=== PATIENT | female | born 1960 | race Hispanic/Latino ===

== ENCOUNTER 2021-08-30 10:30 | Emergency (ER) | payer BC ==
--- OUTSIDE RECORDS SUMMARY | 2021-08-30 10:34 | XMS REPORT | Clinical Summary ---
:1960 Author Organization [facility] Address [address] [place] [address] Care Team Providers Name Role Phone Unavailable Primary Care Provider Unavailable Allergies No known active allergies Medications Medication Sig Dispensed Refills Start Date End Date Status carvedilol (COREG) 25 Take 25 mg by 0 Active mg tablet mouth twice daily. HYDROcodone-acetaminop Take 1 tablet by 90 tablet 0 11/21/2019 Active hen (NORCO) 5 mg-325 mouth every 4 mg per (four) hours as tabletIndications: needed (pain). Abdominal pain, left lower quadrant Active Problems Problem Noted Date Hypertension 11/20/2019 Diverticulitis of sigmoid colon 11/20/2019 Complex cyst of right ovary 11/20/2019 Right upper quadrant pain 11/20/2019 Surgical History Surgery Date Site/Laterality Comments HERNIA REPAIR PARTIAL HYSTERECTOMY Medical History Medical History Date Comments Hypertension Social History Tobacco Use Types Packs/Day Years Used Date Never Smoker Smokeless Tobacco: Never Used Alcohol Use Standard Drinks/Week Comments Yes 0 (1 standard drink = 0.6 oz pure alcoho l) Sex Assigned at Date Recorded Not on file Obstetrics History Last Filed Vital Signs Not on file Plan of Treatment Health Maintenance Due Date Last Done Comments COVID-19 Vaccination (1) 1966 Results Not on fileafter 08/30/2020 Advance Directives Code Status Date Activated Date Inactivated Comments Full Code 11/20/2019 6:14 AM 11/22/2019 1:07 PM
--- OUTSIDE RECORDS SUMMARY | 2021-08-30 10:37 | XMS REPORT | Continuity of Care Document ---
:1960 Author Organization [facility] t Address [address] [place] [address] Care Team Providers Name Role Phone Fred Joseph MD Primary Care Physician [phone] Angelic JORGENSEN, T Attending Clinician Unavailable Only, Db Test Attending Clinician Unavailable Heath MENDEZ Attending Clinician HEATH Attending Clinician Unavailable Flynn MENDEZ, Oni Attending Clinician Sky Gonzalez DO Attending Clinician Michelle MAJOR C Attending Clinician Yordan WILEY Attending Clinician Doctor Unassigned, Name Attending Clinician Unavailable Roxi Contreras DO Attending Clinician Luis HURTADO Attending Clinician Unavailable Gamaliel Joseph MD Attending Clinician Denises ROSS Attending Clinician Unavailable Tayler MARTINEZ Attending Clinician Unavailable Prosper MENDEZ, Rodriguez Attending Clinician JONA Pisanoitting Clinician Unavailable Payers Payer Name Policy Type Policy Number Effective Date Expiration Date Oni jackson [facility] [id number] 2020 00:00:00 MEDICAID OF [place] [id number] 2020 00:00:00 Problems Condition Condition Condition Status Onset Resolution Last Treating Co mments Source Name Details Category Date Date Treatment Clinician Date Right Right Disease Active upper upper 11-19 Anderso quadrant quadrant 00:00: n pain pain 00 Hypertensi Hypertensi Disease Active M D on on 11-19 Anderso 00:00: n 00 Diverticul Diverticul Disease Active M D itis of itis of 11-19 Anderso sigmoid sigmoid 00:00: n colon colon 00 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 Reports still has ovaries Well woman Well woman Disease Active Overview : Univers exam exam 3-15 ICD10 ity of 00:00: Diagnosis 00 Term Medical [employer]iler [employer] Branch Utility Overweight Overweight Disease Active Overview : Univers 3-15 Formattin ity of 00:00: g of this [place] 00 note Medical might be Branch different from the original. 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 Allergies, Adverse Reactions, Alerts Allergy Allergy Status Severity Reaction(s) Onset Inactive Treating Comm ents Source Name Type Date Date Clinician NO KNOWN Drug Active Univers ALLERGIE Class ity of [facility] [place] [facility] Social History Social Habit Start Date Stop Date Quantity Comments Source Exposure to Not sure University of SARS-CoV-2 [place] Medical (event) Branch Alcohol intake 2019-11-20 2019-11-20 Current drinker MD Yasmin gomez 00:00:00 00:00:00 of alcohol (finding) Tobacco use and 2019-04-13 2019-04-13 Smokeless tobacco MD Hirsch exposure 00:00:00 00:00:00 non-user Sex Ass[birth year] At [birth year] MD [place] on 00:00:00 00:00:00 Smoking Status Start Date Stop Date Source Never smoker [facility] Medications Ordered Filled Start Stop Current Ordering Indication Dosage Frequency Signature Comments Components Source Medication Medication Date Date Medication? Clinician (SIG) Name Name benzonatate Yes [id number] 200mg Take 1 Univers 200 mg 5-17 capsule by ity of capsule 00:00: mouth 3 (three) Medical times Branch daily as needed for Cough. naproxen Yes [id number] 550mg Take 1 Un hemalatha sodium 550 5-17 tablet by ity of mg tablet 00:00: mouth 2 (two) Medical times Branch daily as needed for Pain (scale 7-10). benzonatate Yes [id number] 200mg Take 1 Univers 200 mg 5-17 capsule by ity of capsule 00:00: mouth 3 (three) Medical times Branch daily as needed for Cough. naproxen Yes [id number] 550mg Take 1 Un hemalatha sodium 550 5-17 tablet by ity of mg tablet 00:00: mouth 2 00 (two) Medical times Branch daily as needed for Pain (scale 7-10). benzonatate Yes [id number] 200mg Take 1 Univers 200 mg 5-17 capsule by ity of capsule 00:00: mouth 3 (three) Medical times Branch daily as needed for Cough. naproxen 2020- Yes [id number] 550mg Take 1 Un hemalatha sodium 550 5-17 tablet by ity of mg tablet 00:00: mouth 2 00 (two) Medical times Branch daily as needed for Pain (scale 7-10). aspirin 0 Yes 324mg 324 mg, Univer s chewable 2-03 Oral, ity of tablet 324 15:00: DAILY, [place] mg 00 First dose Medical on Wed Branch 07/10/20 at 0900, Until Discontinu ed, KAMILLE FENTanyl PF 2020-0 2020- No 50ug 50 mcg, Un hemalatha (SUBLIMAZE 2-02 -02 Slow IV ity o f (PF)) 18:10: 18:20 Push, [place] injection 00 :00 ONCE, 1 Medical 50 mcg dose, Tue Branch 07/09/20 at 1215, [place]AM[place]LE azithromyci 2020-0 Yes [id number] 250mg Take 1 Univers n 250 mg 2-02 tablet by ity of tablet 00:00: mouth 00 daily. Medical Take 500 Branch mg day 1, then 250 mg days 2 to 5. benzonatate 2020-0 Yes [id number] 100mg Take 1 Univers 100 mg 2-02 capsule by ity of capsule 00:00: mouth (three) Medical times Branch daily as needed for Cough. albuterol 2020-0 Yes [id number] 2{puff} Inhale 2 Univers 90 2-02 Puffs ity of mcg/actuati 00:00: every 4 Reza as on inhaler 00 (four) Medical hours as Branch needed for Wheezing or Shortness of Breath. azithromyci 2020-0 Yes [id number] 250mg Take 1 Univers n 250 mg 2-02 tablet by ity of tablet 00:00: mouth 00 daily. Medical Take 500 Branch mg day 1, then 250 mg days 2 to 5. benzonatate 2020-0 Yes [id number] 100mg Take 1 Univers 100 mg 2-02 capsule by ity of capsule 00:00: mouth (three) Medical times Branch daily as needed for Cough. albuterol 2020-0 Yes [id number] 2{puff} Inhale 2 Univers 90 2-02 Puffs ity of mcg/actuati 00:00: every 4 Reza as on inhaler 00 (four) Medical hours as Branch needed for Wheezing or Shortness of Breath. azithromyci 2020-0 Yes [id number] 250mg Take 1 Univers n 250 mg 2-02 tablet by ity of tablet 00:00: mouth 00 daily. Medical Take 500 Branch mg day 1, then 250 mg days 2 to 5. benzonatate 2020-0 Yes [id number] 100mg Take 1 Univers 100 mg 2-02 capsule by ity of capsule 00:00: mouth (three) Medical times Branch daily as needed for Cough. albuterol 2020-0 Yes [id number] 2{puff} Inhale 2 Univers 90 2-02 Puffs ity of mcg/actuati 00:00: every 4 Reza as on inhaler 00 (four) Medical hours as Branch needed for Wheezing or Shortness of Breath. azithromyci 2020-0 Yes [id number] 250mg Take 1 Univers n 250 mg 2-02 tablet by ity of tablet 00:00: mouth [place] 00 daily. Medical Take 500 Branch mg day 1, then 250 mg days 2 to 5. benzonatate 2020-0 Yes [id number] 100mg Take 1 Univers 100 mg 2-02 capsule by ity of capsule 00:00: mouth 3 (three) Medical times Branch daily as needed for Cough. albuterol 2020-0 Yes [id number] 2{puff} Inhale 2 Univers 90 2-02 Puffs ity of mcg/actuati 00:00: every 4 Reza as on inhaler 00 (four) Medical hours as Branch needed for Wheezing or Shortness of Breath. azithromyci 2020-0 Yes [id number] 250mg Take 1 Univers n 250 mg 2-02 tablet by ity of tablet 00:00: mouth 00 daily. Medical Take 500 Branch mg day 1, then 250 mg days 2 to 5. benzonatate 2020-0 Yes [id number] 100mg Take 1 Univers 100 mg 2-02 capsule by ity of capsule 00:00: mouth 3 (three) Medical times Branch daily as needed for Cough. albuterol 2020-0 Yes [id number] 2{puff} Inhale 2 Univers 90 2-02 Puffs ity of mcg/actuati 00:00: every 4 Reza as on inhaler 00 (four) Medical hours as Branch needed for Wheezing or Shortness of Breath. azithromyci 2020-0 Yes [id number] 250mg Take 1 Univers n 250 mg 2-02 tablet by ity of tablet 00:00: mouth [place] 00 daily. Medical Take 500 Branch mg day 1, then 250 mg days 2 to 5. benzonatate 2020-0 Yes [id number] 100mg Take 1 Univers 100 mg 2-02 capsule by ity of capsule 00:00: mouth 3 (three) Medical times Branch daily as needed for Cough. albuterol 2021-0 Yes [id number] 2{puff} Inhale 2 Univers 90 2-02 Puffs ity of mcg/actuati 00:00: every 4 Reza as on inhaler 00 (four) Medical hours as Branch needed for Wheezing or Shortness of Breath. acetaminoph 0 2020- No 1000mg 1,000 mg, Univers en 1-23 -23 Oral, ity of (TYLENOL) 02:00: 00:58 ONCE, 1 [place] :[place] dose, Fri Medical 1,000 mg 06/28/20 at [facility] h 1999, Routine carvedilol Yes 6.25mg Take 6.25 Univers 6.25 mg 1-23 mg by ity of tablet 00:47: mouth [address] [place] [address] (two) Medical times Branch daily with meals. carvedilol Yes 6.25mg Take 6.25 Univers 6.25 mg 1-23 mg by ity of tablet 00:47: mouth [address] [place] [address] (two) Medical times Branch daily with meals. carvedilol 0 Yes 6.25mg Take 6.25 Univers 6.25 mg 1-23 mg by ity of tablet 00:47: mouth [address] [place] [address] (two) Medical times Branch daily with meals. carvedilol 2020-0 Yes 6.25mg Take 6.25 Univers 6.25 mg 1-23 mg by ity of tablet 00:47: mouth [address] [place] [address] (two) Medical times Branch daily with meals. carvedilol 2020-0 Yes 6.25mg Take 6.25 Univers 6.25 mg 1-23 mg by ity of tablet 00:47: mouth [address] [place] [address] (two) Medical times Branch daily with meals. carvedilol 0 Yes 6.25mg Take 6.25 Univers 6.25 mg 1-23 mg by ity of tablet 00:47: mouth [address] [place] [address] (two) Medical times Branch daily with meals. carvedilol 2020-0 Yes 6.25mg Take 6.25 Univers 6.25 mg 1-22 mg by ity of tablet 18:47: mouth 2 [place] [address] (two) Medical times Branch daily with meals. carvedilol 2020-0 Yes 6.25mg Take 6.25 Univers 6.25 mg 1-22 mg by ity of tablet 18:47: mouth 2 [place] 45 (two) Medical times Branch daily with meals. carvedilol 2020-0 Yes 25mg Take 25 mg M D (COREG) 25 6-17 by mouth Adam so mg tablet 11:02: twice n 08 daily. HYDROcodone 2020-0 Yes Abdominal 1{tbl} Take 1 MD -acetaminop 6-16 pain, left tablet by Anderica gómez (NORCO) 00:00: lower mouth n 5 mg-325 mg 00 quadrant every 4 per tablet (four) hours as needed (pain). ampicillin 2020-0 2020- No [id number] 500mg Take 1 Univers 500 mg 06-27 capsule by ity of capsule 00:00: 05:59 mouth 4 [place] 00 :00 (four) Medical times Branch daily for 10 days. ampicillin 2020-0 2020- No [id number] 500mg Take 1 Univers 500 mg 06-27 capsule by ity of capsule 00:00: 05:59 mouth 4 [place] 00 :00 (four) Medical times Branch daily for 10 days. ampicillin 2020-0 2020- No [id number] 500mg Take 1 Univers 500 mg 06-27 capsule by ity of capsule 00:00: 05:59 mouth 4 [place] 00 :00 (four) Medical times Branch daily for 10 days. ampicillin 2020-0 2020- No [id number] 500mg Take 1 Univers 500 mg 06-27 capsule by ity of capsule 00:00: 05:59 mouth 4 [place] 00 :00 (four) Medical times Branch daily for 10 days. ampicillin 2020-0 2020- No [id number] 500mg Take 1 Univers 500 mg 06-27 capsule by ity of capsule 00:00: 05:59 mouth 4 [place] 00 :00 (four) Medical times Branch daily for 10 days. carvedilol 2020-0 Yes 6.25mg Take 6.25 Univers 6.25 mg 1-16 mg by ity of tablet 16:22: mouth. [address] Branch carvedilol 2020-0 Yes 6.25mg Take 6.25 Univers 6.25 mg 1-16 mg by ity of tablet 16:22: mouth. [address] Branch carvedilol 2020-0 Yes 6.25mg Take 6.25 Univers 6.25 mg 1-16 mg by ity of tablet 16:22: mouth. [address] carvedilol 2020-0 Yes 6.25mg Take 6.25 Univers 6.25 mg 1-16 mg by ity of tablet 16:22: mouth. [place] [address] Medical Branch carvedilol 2020-0 Yes 6.25mg Take 6.25 Univers 6.25 mg 1-16 mg by ity of tablet 16:22: mouth. [address] carvedilol 2020-0 Yes 6.25mg Take 6.25 Univers 6.25 mg 1-16 mg by ity of tablet 16:22: mouth. [address] Branch carvedilol 2020-0 Yes 6.25mg Take 6.25 Univers 6.25 mg 1-16 mg by ity of tablet 16:22: mouth. [address] carvedilol 2020-0 Yes 6.25mg Take 6.25 Univers 6.25 mg 1-16 mg by ity of tablet 16:22: mouth. [address] carvedilol 2020-0 Yes 6.25mg Take 6.25 Univers 6.25 mg 1-16 mg by ity of tablet 16:22: mouth. [address] carvedilol 2020-0 Yes 6.25mg Take 6.25 Univers 6.25 mg 1-16 mg by ity of tablet 16:22: mouth. [address] carvedilol 2020-0 Yes 6.25mg Take 6.25 Univers 6.25 mg 1-16 mg by ity of tablet 16:22: mouth. [address] carvedilol 2020-0 Yes 6.25mg Take 6.25 Univers 6.25 mg 1-16 mg by ity of tablet 16:22: mouth. [address] carvedilol 2020-0 Yes 6.25mg Take 6.25 Univers 6.25 mg 1-16 mg by ity of tablet 16:22: mouth. [address] carvedilol 2020-0 Yes 6.25mg Take 6.25 Univers 6.25 mg 1-16 mg by ity of tablet 16:22: mouth. [address] carvedilol 2020-0 Yes 6.25mg Take 6.25 Univers 6.25 mg 1-16 mg by ity of tablet 16:22: mouth. [address] carvedilol 2020-0 Yes 6.25mg Take 6.25 Univers 6.25 mg 1-16 mg by ity of tablet 16:22: mouth. [place] [address] Medical Branch carvedilol 2020-0 Yes 6.25mg Take 6.25 Univers 6.25 mg 1-16 mg by ity of tablet 16:22: mouth. [place] [address] Medical Branch diclofenac 2019-0 Yes [id number] 50mg Take 1 U nivers 50 mg EC 9-30 tablet by ity of tablet 00:00: mouth (three) Medical times Branch daily as needed for Pain. diclofenac 2018-0 Yes [id number] 50mg Take 1 U nivers 50 mg EC 9-30 tablet by ity of tablet 00:00: mouth (three) Medical times Branch daily as needed for Pain. diclofenac 2018-0 Yes [id number] 50mg Take 1 U nivers 50 mg EC 9-30 tablet by ity of tablet 00:00: mouth (three) Medical times Branch daily as needed for Pain. diclofenac 0 Yes [id number] 50mg Take 1 U nivers 50 mg EC 9-30 tablet by ity of tablet 00:00: mouth (three) Medical times Branch daily as needed for Pain. diclofenac 0 Yes [id number] 50mg Take 1 U nivers 50 mg EC 9-30 tablet by ity of tablet 00:00: mouth (three) Medical times Branch daily as needed for Pain. diclofenac 2018-0 Yes [id number] 50mg Take 1 U nivers 50 mg EC 9-30 tablet by ity of tablet 00:00: mouth (three) Medical times Branch daily as needed for Pain. diclofenac 2018-0 Yes [id number] 50mg Take 1 U nivers 50 mg EC 9-30 tablet by ity of tablet 00:00: mouth (three) Medical times Branch daily as needed for Pain. diclofenac 2018-0 Yes [id number] 50mg Take 1 U nivers 50 mg EC 9-30 tablet by ity of tablet 00:00: mouth (three) Medical times Branch daily as needed for Pain. diclofenac 2018-0 Yes [id number] 50mg Take 1 U nivers 50 mg EC 9-30 tablet by ity of tablet 00:00: mouth (three) Medical times Branch daily as needed for Pain. diclofenac 2019-0 Yes [id number] 50mg Take 1 U nivers 50 mg EC 9-30 tablet by ity of tablet 00:00: mouth (three) Medical times Branch daily as needed for Pain. diclofenac Yes [id number] 50mg Take 1 U nivers 50 mg EC 9-30 tablet by ity of tablet 00:00: mouth (three) Medical times Branch daily as needed for Pain. diclofenac Yes [id number] 50mg Take 1 U nivers 50 mg EC 9-30 tablet by ity of tablet 00:00: mouth (three) Medical times Branch daily as needed for Pain. diclofenac Yes [id number] 50mg Take 1 U nivers 50 mg EC 9-30 tablet by ity of tablet 00:00: mouth (three) Medical times Branch daily as needed for Pain. diclofenac Yes [id number] 50mg Take 1 U nivers 50 mg EC 9-30 tablet by ity of tablet 00:00: mouth (three) Medical times Branch daily as needed for Pain. diclofenac Yes [id number] 50mg Take 1 U nivers 50 mg EC 9-30 tablet by ity of tablet 00:00: mouth (three) Medical times Branch daily as needed for Pain. diclofenac Yes [id number] 50mg Take 1 U nivers 50 mg EC 9-30 tablet by ity of tablet 00:00: mouth (three) Medical times Branch daily as needed for Pain. diclofenac Yes [id number] 50mg Take 1 U nivers 50 mg EC 9-30 tablet by ity of tablet 00:00: mouth (three) Medical times Branch daily as needed for Pain. diclofenac Yes [id number] 50mg Take 1 U nivers 50 mg EC 9-30 tablet by ity of tablet 00:00: mouth (three) Medical times Branch daily as needed for Pain. diclofenac 2020- No [id number] 50mg Take 1 Univers 50 mg EC 9-30 - tablet by ity o f tablet 00:00: 00:00 mouth 3 00 :00 (three) Medical times Branch daily as needed for Pain. gabapentin 2018- Yes 100mg Take 1 Univ ers 100 mg 8- capsule by ity of capsule 00:00: mouth 3 (three) Medical times Branch daily. gabapentin 2019-0 Yes 100mg Take 1 Univ ers 100 mg 8-01 capsule by ity of capsule 00:00: mouth (three) Medical times Branch daily. gabapentin 2019-0 Yes 100mg Take 1 Univ ers 100 mg 8-01 capsule by ity of capsule 00:00: mouth 3 (three) Medical times Branch daily. gabapentin 2019-0 Yes 100mg Take 1 Univ ers 100 mg 8-01 capsule by ity of capsule 00:00: mouth (three) Medical times Branch daily. gabapentin 2019-0 Yes 100mg Take 1 Univ ers 100 mg 8-01 capsule by ity of capsule 00:00: mouth (three) Medical times Branch daily. gabapentin 2019-0 Yes 100mg Take 1 Univ ers 100 mg 8-01 capsule by ity of capsule 00:00: mouth (three) Medical times Branch daily. gabapentin 2019-0 Yes 100mg Take 1 Univ ers 100 mg 8-01 capsule by ity of capsule 00:00: mouth (three) Medical times Branch daily. gabapentin 2019-0 Yes 100mg Take 1 Univ ers 100 mg 8-01 capsule by ity of capsule 00:00: mouth (three) Medical times Branch daily. gabapentin 2019-0 Yes 100mg Take 1 Univ ers 100 mg 8-01 capsule by ity of capsule 00:00: mouth (three) Medical times Branch daily. gabapentin 2019-0 Yes 100mg Take 1 Univ ers 100 mg 8-01 capsule by ity of capsule 00:00: mouth (three) Medical times Branch daily. gabapentin 2019-0 Yes 100mg Take 1 Univ ers 100 mg 8-01 capsule by ity of capsule 00:00: mouth (three) Medical times Branch daily. gabapentin 2019-0 Yes 100mg Take 1 Univ ers 100 mg 8-01 capsule by ity of capsule 00:00: mouth (three) Medical times Branch daily. gabapentin 2019-0 Yes 100mg Take 1 Univ ers 100 mg 8-01 capsule by ity of capsule 00:00: mouth 3 (three) Medical times Branch daily. gabapentin 2019-0 Yes 100mg Take 1 Univ ers 100 mg 8-01 capsule by ity of capsule 00:00: mouth (three) Medical times Branch daily. gabapentin 2019-0 Yes 100mg Take 1 Univ ers 100 mg 8-01 capsule by ity of capsule 00:00: mouth 3 [place] 00 (three) Medical times Branch daily. gabapentin 2019-0 Yes 100mg Take 1 Univ ers 100 mg 8-01 capsule by ity of capsule 00:00: mouth 3 [place] 00 (three) Medical times Branch daily. gabapentin 2019-0 Yes 100mg Take 1 Univ ers 100 mg 8-01 capsule by ity of capsule 00:00: mouth 3 [place] 00 (three) Medical times Branch daily. gabapentin 2019-0 Yes 100mg Take 1 Univ ers 100 mg 8-01 capsule by ity of capsule 00:00: mouth 3 [place] 00 (three) Medical times Branch daily. gabapentin 2019-0 Yes 100mg Take 1 Univ ers 100 mg 8-01 capsule by ity of capsule 00:00: mouth 3 [place] 00 (three) Medical times Branch daily. gabapentin 2019-0 Yes 100mg Take 1 Univ ers 100 mg 8-01 capsule by ity of capsule 00:00: mouth 3 [place] 00 (three) Medical times Branch daily. gabapentin 2019-0 Yes 100mg Take 1 Univ ers 100 mg 8-01 capsule by ity of capsule 00:00: mouth 3 [place] 00 (three) Medical times Branch daily. gabapentin 2019-0 2021- No 100mg Take 1 Uni vers 100 mg 8-01 -22 capsule by ity of capsule 00:00: 00:00 mouth 3 [place] 00 :00 (three) Medical times Branch daily. cyclobenzap Yes [id number] 10mg Take 1 Univers rine 10 mg 6-17 4 tablet by ity of tablet 00:00: mouth at [place] [address] bedtime. Medical Branch cyclobenzap 2018-0 Yes [id number] 10mg Take 1 Univers rine 10 mg 6-17 4 tablet by ity of tablet 00:00: mouth at [place] [address] bedtime. Medical Branch cyclobenzap 2019-0 Yes [id number] 10mg Take 1 Univers rine 10 mg 6-17 4 tablet by ity of tablet 00:00: mouth at [place] [address] bedtime. Medical Branch cyclobenzap 2018- Yes [id number] 10mg Take 1 Univers rine 10 mg 6-17 4 tablet by ity of tablet 00:00: mouth at [place] [address] bedtime. Medical Branch cyclobenzap 2018- Yes [id number] 10mg Take 1 Univers rine 10 mg 6-17 4 tablet by ity of tablet 00:00: mouth at [place] [address] bedtime. Medical Branch cyclobenzap 2018-0 Yes [id number] 10mg Take 1 Univers rine 10 mg 6-17 4 tablet by ity of tablet 00:00: mouth at [place] [address] bedtime. Medical Branch cyclobenzap 2018-0 Yes [id number] 10mg Take 1 Univers rine 10 mg 6-17 4 tablet by ity of tablet 00:00: mouth at [place] [address] bedtime. Medical Branch cyclobenzap 2018- Yes [id number] 10mg Take 1 Univers rine 10 mg 6-17 4 tablet by ity of tablet 00:00: mouth at [place] [address] bedtime. Medical Branch cyclobenzap 2018- Yes [id number] 10mg Take 1 Univers rine 10 mg 6-17 4 tablet by ity of tablet 00:00: mouth at [place] [address] bedtime. Medical Branch cyclobenzap 2018- Yes [id number] 10mg Take 1 Univers rine 10 mg 6-17 4 tablet by ity of tablet 00:00: mouth at [place] [address] bedtime. Medical Branch cyclobenzap 2018- Yes [id number] 10mg Take 1 Univers rine 10 mg 6-17 4 tablet by ity of tablet 00:00: mouth at [place] [address] bedtime. Medical Branch cyclobenzap 2018- Yes [id number] 10mg Take 1 Univers rine 10 mg 6-17 4 tablet by ity of tablet 00:00: mouth at [place] [address] bedtime. Medical Branch cyclobenzap 2018-0 Yes [id number] 10mg Take 1 Univers rine 10 mg 6-17 4 tablet by ity of tablet 00:00: mouth at [place] [address] bedtime. Medical Branch cyclobenzap 2018- Yes [id number] 10mg Take 1 Univers rine 10 mg 6-17 4 tablet by ity of tablet 00:00: mouth at [place] [address] bedtime. Medical Branch cyclobenzap 2018-0 Yes [id number] 10mg Take 1 Univers rine 10 mg 6-17 4 tablet by ity of tablet 00:00: mouth at [place] [address] bedtime. Medical Branch cyclobenzap 2018- Yes [id number] 10mg Take 1 Univers rine 10 mg 6-17 4 tablet by ity of tablet 00:00: mouth at [place] 00 bedtime. Medical Branch cyclobenzap Yes [id number] 10mg Take 1 Univers rine 10 mg 6-17 4 tablet by ity of tablet 00:00: mouth at [place] [address] bedtime. Medical Branch cyclobenzap Yes [id number] 10mg Take 1 Univers rine 10 mg 6-17 4 tablet by ity of tablet 00:00: mouth at [place] [address] bedtime. Medical Branch cyclobenzap Yes [id number] 10mg Take 1 Univers rine 10 mg 6-17 4 tablet by ity of tablet 00:00: mouth at [place] 00 bedtime. Medical Branch cyclobenzap Yes [id number] 10mg Take 1 Univers rine 10 mg 6-17 4 tablet by ity of tablet 00:00: mouth at [place] 00 bedtime. Medical Branch cyclobenzap Yes [id number] 10mg Take 1 Univers rine 10 mg 6-17 4 tablet by ity of tablet 00:00: mouth at [place] [address] bedtime. Medical Branch cyclobenzap Yes [id number] 10mg Take 1 Univers rine 10 mg 6-17 4 tablet by ity of tablet 00:00: mouth at [place] [address] bedtime. Medical Branch cyclobenzap 2021- No [id number] 10mg Take 1 Univers rine 10 mg 6-17 01-22 4 tablet by ity of tablet 00:00: 00:00 mouth at [place] 00 :00 bedtime. Medical Branch cyclobenzap Yes [id number] 5mg Take 1 U nivers rine 5 mg 5-25 tablet by ity o f tablet 00:00: mouth 3 [place] (three) Medical times Branch daily as needed for Muscle Spasms. cyclobenzap Yes [id number] 5mg Take 1 U nivers rine 5 mg 5-25 tablet by ity o f tablet 00:00: mouth 3 [place] (three) Medical times Branch daily as needed for Muscle Spasms. cyclobenzap Yes [id number] 5mg Take 1 U nivers rine 5 mg 5-25 tablet by ity o f tablet 00:00: mouth 3 [place] (three) Medical times Branch daily as needed for Muscle Spasms. cyclobenzap 2018- Yes [id number] 5mg Take 1 U nivers rine 5 mg 5-25 tablet by ity o f tablet 00:00: mouth 3 (three) Medical times Branch daily as needed for Muscle Spasms. cyclobenzap 2018-0 Yes [id number] 5mg Take 1 U nivers rine 5 mg 5-25 tablet by ity o f tablet 00:00: mouth 3 (three) Medical times Branch daily as needed for Muscle Spasms. cyclobenzap 2018-0 Yes [id number] 5mg Take 1 U nivers rine 5 mg 5-25 tablet by ity o f tablet 00:00: mouth 3 (three) Medical times Branch daily as needed for Muscle Spasms. cyclobenzap Yes [id number] 5mg Take 1 U nivers rine 5 mg 5-25 tablet by ity o f tablet 00:00: mouth 3 (three) Medical times Branch daily as needed for Muscle Spasms. cyclobenzap 0 Yes [id number] 5mg Take 1 U nivers rine 5 mg 5-25 tablet by ity o f tablet 00:00: mouth (three) Medical times Branch daily as needed for Muscle Spasms. cyclobenzap 2018-0 Yes [id number] 5mg Take 1 U nivers rine 5 mg 5-25 tablet by ity o f tablet 00:00: mouth (three) Medical times Branch daily as needed for Muscle Spasms. cyclobenzap 0 Yes [id number] 5mg Take 1 U nivers rine 5 mg 5-25 tablet by ity o f tablet 00:00: mouth 3 (three) Medical times Branch daily as needed for Muscle Spasms. cyclobenzap 2018-0 Yes [id number] 5mg Take 1 U nivers rine 5 mg 5-25 tablet by ity o f tablet 00:00: mouth (three) Medical times Branch daily as needed for Muscle Spasms. cyclobenzap 2018-0 Yes [id number] 5mg Take 1 U nivers rine 5 mg 5-25 tablet by ity o f tablet 00:00: mouth 3 (three) Medical times Branch daily as needed for Muscle Spasms. cyclobenzap 2018-0 Yes [id number] 5mg Take 1 U nivers rine 5 mg 5-25 tablet by ity o f tablet 00:00: mouth 3 (three) Medical times Branch daily as needed for Muscle Spasms. cyclobenzap Yes [id number] 5mg Take 1 U nivers rine 5 mg 5-25 tablet by ity o f tablet 00:00: mouth 3 00 (three) Medical times Branch daily as needed for Muscle Spasms. cyclobenzap 0 Yes [id number] 5mg Take 1 U nivers rine 5 mg 5-25 tablet by ity o f tablet 00:00: mouth 3 (three) Medical times Branch daily as needed for Muscle Spasms. cyclobenzap Yes [id number] 5mg Take 1 U nivers rine 5 mg 5-25 tablet by ity o f tablet 00:00: mouth 3 (three) Medical times Branch daily as needed for Muscle Spasms. cyclobenzap Yes [id number] 5mg Take 1 U nivers rine 5 mg 5-25 tablet by ity o f tablet 00:00: mouth 3 (three) Medical times Branch daily as needed for Muscle Spasms. cyclobenzap Yes [id number] 5mg Take 1 U nivers rine 5 mg 5-25 tablet by ity o f tablet 00:00: mouth 3 (three) Medical times Branch daily as needed for Muscle Spasms. cyclobenzap Yes [id number] 5mg Take 1 U nivers rine 5 mg 5-25 tablet by ity o f tablet 00:00: mouth 3 00 (three) Medical times Branch daily as needed for Muscle Spasms. cyclobenzap Yes [id number] 5mg Take 1 U nivers rine 5 mg 5-25 tablet by ity o f tablet 00:00: mouth 3 (three) Medical times Branch daily as needed for Muscle Spasms. cyclobenzap Yes [id number] 5mg Take 1 U nivers rine 5 mg 5-25 tablet by ity o f tablet 00:00: mouth 3 00 (three) Medical times Branch daily as needed for Muscle Spasms. cyclobenzap 0 Yes [id number] 5mg Take 1 U nivers rine 5 mg 5-25 tablet by ity o f tablet 00:00: mouth 3 00 (three) Medical times Branch daily as needed for Muscle Spasms. cyclobenzap 2020- No [id number] 5mg Take 1 Univers rine 5 mg 5-25 - tablet by ity of tablet 00:00: 00:00 mouth 3 [place] 00 :00 (three) Medical [facility] daily as needed for Muscle Spasms. carvedilol 2017-06 Yes 6.25mg Take 6.25 Univers 6.25 mg 0-31 mg by ity of tablet 16:35: mouth. [address] carvedilol 2017-06 Yes 6.25mg Take 6.25 Univers 6.25 mg 0-31 mg by ity of tablet 16:35: mouth. [address] carvedilol 2017-06 Yes 6.25mg Take 6.25 Univers 6.25 mg 0-31 mg by ity of tablet 16:35: mouth. [address] carvedilol 2017-06 Yes 6.25mg Take 6.25 Univers 6.25 mg 0-31 mg by ity of tablet 16:35: mouth. [address] carvedilol 2017-06 Yes 6.25mg Take 6.25 Univers 6.25 mg 0-31 mg by ity of tablet 16:35: mouth. [address] Immunizations Ordered Filled Immunization Date Status Comments [facility] e Immunization Name Name [facility] 2014-08-16 Completed University of 00:00:00 [facility] Tdap 2014-08-16 Completed University of 00:00:00 [facility] Tdap 2014-08-16 Completed University of 00:00:00 [facility] Tdap 2014-08-16 Completed University of 00:00:00 [facility] Tdap 2014-08-16 Completed University of 00:00:00 [facility] Tdap 2014-08-16 Completed University of 00:00:00 [facility] Tdap 2014-08-16 Completed University of 00:00:00 [facility] Tdap 2014-08-16 Completed University of 00:00:00 [facility] Tdap 2014-08-16 Completed University of 00:00:00 [facility] Tdap 2014-08-16 Completed University of 00:00:00 [facility] Tdap 2014-08-16 Completed University of 00:00:00 [facility] Tdap 2014-08-16 Completed University of 00:00:00 [facility] Tdap 2014-08-16 Completed University of 00:00:00 [facility] TDAP 2014-08-16 Completed University of 00:00:00 [place] [facility] TDAP 2014-08-16 Completed University of 00:00:00 [place] [facility] TDAP 2014-08-16 Completed University of 00:00:00 [place] [facility] TDAP 2014-08-16 Completed University of 00:00:00 [place] [facility] TDAP 2014-08-16 Completed University of 00:00:00 [place] [facility] TDAP 2014-08-16 Completed University of 00:00:00 [place] [facility] TDAP 2014-08-16 Completed University of 00:00:00 [place] [facility] TDAP 2014-08-16 Completed University of 00:00:00 [place] [facility] TDAP 2014-08-16 Completed University of 00:00:00 [place] [facility] Tdap 2014-08-16 Completed University of 00:00:00 [place] [facility] TDAP 2014-08-16 Completed University of 00:00:00 [place] [facility] TDAP 2014-08-16 Completed University of 00:00:00 [place] [facility] Tdap 2014-08-16 Completed University of 00:00:00 [place] [facility] Tdap 2014-08-16 Completed University of 00:00:00 [place] [facility] Tdap 2014-08-16 Completed University of 00:00:00 [place] [facility] Tdap 2014-08-16 Completed University of 00:00:00 [place] [facility] Tdap 2014-08-16 Completed University of 00:00:00 [facility] Vital Signs Vital Name Observation Time Observation Value Comments Source Systolic blood 2020-10-21 07:00:00 129 mm[Hg] Univer sity of pressure [facility] Diastolic blood 2020-10-21 07:00:00 85 mm[Hg] Unive rsity of pressure [facility] Heart rate 2020-10-21 07:00:00 80 /min [facility] Body temperature 2020-10-21 07:00:00 37.39 [facility] 2020-10-21 07:00:00 19 /min Univ [facility] Oxygen saturation in 2020-10-21 07:00:00 97 /min [facility] Arterial blood by [facility] Pulse oximetry Branch Body height 2020-10-21 04:32:00 157.5 cm [facility] Body weight 2020-10-21 04:32:00 65.772 kg Universi ty [facility] [place] [facility] BMI 2020-10-21 04:32:00 26.52 kg/m2 [facility] [place] [facility] Systolic blood 2020-07-09 20:30:00 122 mm[Hg] Univer sity of pressure [place] [facility] Diastolic blood 2020-07-09 20:30:00 73 mm[Hg] Unive rsity of pressure [place] [facility] Heart rate 2020-07-09 20:30:00 60 /min [facility] [place] [facility] Respiratory rate 2020-07-09 20:30:00 22 /min Univ ersity [facility] [place] [facility] Oxygen saturation in 2020-07-09 20:30:00 95 /min University of Arterial blood by [place] [employer] Pulse oximetry Branch Body temperature 2020-07-09 17:45:00 36.72 Zena Univ ersity [facility] [place] [facility] Body height 2020-07-09 17:45:00 157.5 cm [facility] [place] [facility] Body weight 2020-07-09 17:45:00 63.504 kg [facility] [place] [facility] BMI 2020-07-09 17:45:00 25.61 kg/m2 [facility] [place] [facility] Systolic blood 2020-06-29 02:30:00 123 mm[Hg] Univer sity of pressure [place] [facility] Diastolic blood 2020-06-29 02:30:00 73 mm[Hg] Unive rsity of pressure [place] [facility] Heart rate 2020-06-29 02:30:00 77 /min [facility] [place] [facility] Respiratory rate 2020-06-29 02:30:00 14 /min Univ ersity of [place] [facility] Oxygen saturation in 2020-06-29 02:30:00 95 /min University of Arterial blood by [place] [employer] Pulse oximetry Branch Body temperature 2020-06-29 02:02:14 37.89 Zena Univ ersity [facility] [place] [facility] Body height 2020-06-29 00:45:00 157.5 cm [facility] [place] [facility] Body weight 2020-06-29 00:45:00 63.504 kg [facility] [place] [facility] BMI 2020-06-29 00:45:00 25.61 kg/m2 [facility] [place] [facility] HEIGHT 2019-11-20 00:00:00 160 cm WEIGHT 2019-11-20 00:00:00 74.5 kg Diastolic blood 2019-06-22 17:33:00 85 mm[Hg] Unive rsity of pressure [place] [facility] Heart rate 2019-06-22 17:33:00 65 /min [facility]i [facility] [place] [facility] Body temperature 2019-06-22 17:33:00 36.61 Zena Univ ersity [facility] [place] [facility] Respiratory rate 2019-06-22 17:33:00 16 /min Univ ersity [facility] [place] [facility] Body weight 2019-06-22 17:33:00 73.936 kg [facility] [place] [facility] BMI 2019-06-22 17:33:00 29.81 kg/m2 [facility] [place] [facility] Systolic blood 2019-06-22 17:33:00 138 mm[Hg] Univer sity of pressure [place] [facility] Systolic blood 2019-06-22 16:19:00 138 mm[Hg] Univer sity of pressure [place] [facility] Diastolic blood 2019-06-22 16:19:00 85 mm[Hg] Unive rsity of pressure [place] [facility] Heart rate 2019-06-22 16:19:00 65 /min [facility]i [facility] [place] [facility] Body temperature 2019-06-22 16:19:00 36.61 Zena Univ ersity [facility] [place] [facility] Respiratory rate 2019-06-22 16:19:00 16 /min Univ ersity [facility] [place] [facility] Body height 2019-06-22 16:19:00 157.5 cm [facility] [place] [facility] [place] Body weight 2019-06-22 16:19:00 74.191 kg [facility] [place] [facility] BMI 2019-06-22 16:19:00 29.92 kg/m2 [facility] [place] [facility] Systolic blood 2018-12-20 19:12:00 141 mm[Hg] Univer sity of pressure [place] [facility] Diastolic blood 2018-12-20 19:12:00 87 mm[Hg] Unive rsity of pressure [place] [facility] Heart rate 2018-12-20 19:11:00 71 /min [facility]i [facility] [place] [facility] Body temperature 2018-12-20 19:11:00 36.06 Zena Univ ersity [facility] [place] [facility] Respiratory rate 2018-12-20 19:11:00 14 /min Univ ersity [facility] [place] [facility] Body height 2018-12-20 19:11:00 157.5 cm [facility] Body weight 2018-12-20 19:11:00 74.447 kg [facility] BMI 2018-12-20 19:11:00 30.02 kg/m2 [facility] Procedures Procedure Date / Time Performed Performing Clinician Sourc e XR CHEST 1 VW 2020-10-21 05:01:05 Gwendolyn Pruett [facility] LIPASE 2020-10-21 04:46:00 Gwendolyn Pruett [facility] TROPONIN I 2020-10-21 04:46:00 Gwendolyn Pruett [facility] COMP. METABOLIC PANEL 2020-10-21 04:46:00 Gwendolyn Pruett [facility] ([id number]) [facility] CBC WITH DIFF 2020-10-21 04:46:00 Gwendolyn Pruett [facility] N-TERMINAL PRO-BNP 2020-10-21 04:46:00 Gwendolyn Pruett [facility] NOTICE OF PRIVACY 2020-10-21 04:23:25 Doctor Unassigned, No [facility] PRACTICES Name [facility] CONSENT/REFUSAL FOR 2020-10-21 04:23:07 Doctor Unassigned, No [facility] DIAGNOSIS AND [facility] TREATMENT XR CHEST 1 VW 2020-07-09 19:37:16 Raul Farr [facility] TROPONIN I 2020-07-09 17:52:00 Raul Farr [facility] COMP. METABOLIC PANEL 2020-07-09 17:52:00 Raul Farr [facility] ([id number]) [facility] CBC WITH DIFF 2020-07-09 17:52:00 Yordan [facility] D-DIMER 2020-07-09 17:52:00 Yordan [facility] N-TERMINAL PRO-BNP 2020-07-09 17:52:00 Raul Farr [facility] HB ECG ROUTINE & 2020-07-09 17:47:23 Yordan [facility] RHYTHM STRIP [facility] Branch NOTICE OF PRIVACY 2020-07-09 17:35:56 Doctor Unassigned, No [facility] PRACTICES Name Medical Branch CONSENT/REFUSAL FOR 2020-07-09 17:35:38 Doctor Unassigned, No [facility] Medical Branch TREATMENT XR CHEST 1 VW 2020-06-29 01:57:48 Sobia Contreras [facility] Medical [place] LIPASE 2020-06-29 01:26:00 Sobia Contreras [facility] TROPONIN I 2020-06-29 01:26:00 Sobia Contreras [facility] HEPATIC FUNCTION PANEL 2020-06-29 01:26:00 [id number] Medical Branch (ALB,T.PRO,BILI T,BU/BC,ALT,AST,ALK PHOS) BASIC METABOLIC PANEL 2020-06-29 01:26:00 Sobia Contreras [facility] versity [facility] (NA, K, CL, CO2, Medical Branch GLUCOSE, BUN, CREATININE, CA) CBC WITH DIFF 2020-06-29 01:26:00 Sobia Contreras [facility] URINALYSIS 2020-06-29 00:56:00 Sobia Contreras [facility] COVID-19 (ID NOW RAPID 2020-06-29 00:56:00 Sobia Contreras Un [facility] TESTING) Medical Branch REFERRAL- 2019-12-26 05:01:00 Doctor Unassigned, No [facility] REQUEST/RESPONSE [facility] EXTERNAL PROVIDER 2019-12-15 05:01:00 Doctor Unassigned, No [facility] RECORDS Name [facility] POCT URINALYSIS 2019-06-22 16:55:00 Anisa Martinez [facility] ASSIGNMENT OF BENEFITS 2019-06-22 15:24:43 Doctor Unassigned, No [facility] Medical Branch MR CERVICAL SPINE WO 2019-01-31 19:55:00 Dre Cheng [facility] Branch CONSENT/REFUSAL FOR 2019-01-31 18:46:36 [facility] Name Medical Branch TREATMENT ASSIGNMENT OF BENEFITS 2019-01-31 18:46:19 Doctor Unassigned, No [facility] Plan of Care Planned Activity Planned Date Details Comments Source Future Scheduled Test 1966 00:00:00 COVID-19 Vaccination MD Hirsch (1) [code = COVID-19 Vaccination (1)] Encounters Start End Encounter Admission Attending Care Care Encounter Source Date/Time Date/Time Type Type Clinicians Facility Department ID 2021-04-06 Emergency [facility] [id number] Univers 19:22:16 ity of [facility] 2021-04-05 Emergency [facility] [id number] Univers 21:16:28 ity of [facility] 2021-04-05 Emergency [facility] [id number] Univers 19:01:09 ity [facility] 2021-06-06 2021-06-06 Letter JOSUE Atwood [id number] Univers 00:00:00 00:00:00 (Out) Sari COLE [id number] it y of [facility] [id number] Reza as [phone] [facility] [address] [place] 2021-06-04 2021-06-04 Laboratory Only, Ang Db Test [facility] 1.2.8 40.114 [id number] Univers 14:55:00 15:10:00 Only Bonnie Joe [facility] [id number] ity of [place] [id number] Reza as BRANNON?BLEA [phone] [address] MEDICAL OFFICE BUILDING 2021-06-04 2021-06-04 Outpatient R [facility] [id number] Univers 14:55:00 14:55:00 [id number] ity of [facility] 2021-06-04 2021-06-04 Outpatient R HEATH [facility] [id number] Univers 14:55:00 14:55:00 BONNIE ity [facility] 2020-10-20 2020-10-21 [facility] [id number] Univers 23:27:00 02:48:00 Gwendolyn Bunn [place] [id number] ity [id number] [id number] [place] 324424 [place] 2020-08-27 2020-08-27 Patient Carlos, [facility] 1.2.840.114 [id number] Univers 00:00:00 00:00:00 Outreach Nino JESSICA [id number] i ty of [facility] [id number] [phone] Ri dical [address] [place] 2020-07-15 2020-07-15 Outpatient R [facility] [id number] Univers 13:00:00 13:00:00 [id number] ity of 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 [id number] ity of [facility] [id number] Reza as MATERNAL [id number] Med ical & CHILD [address] [place] [address] 2020-07-09 2020-07-09 Emergency Yordan [facility] 1.2.840.114 [id number] Univers 11:40:00 14:46:00 Raul Wright [id number] i ty of [id number] [facility] [phone] [place] 324424 [place] 2020-07-09 2020-07-09 Orders Doctor JOSUE 1.2.840.114 [id number] Univers 00:00:00 00:00:00 Only Unassigned, KELSEY [id number] ity of [place] [facility] [id number] Reza as [phone] [facility] 009 Branch 2020-06-28 2020-06-28 Emergency Ben [facility] 1.2.840.114 [id number] Univers 18:47:00 21:00:00 Sobia Wright [id number] ity of [id number] [place] [facility] [id number] [address] 2020-02-08 2020-02-08 Outpatient TAMMY HURTADO [facility] [id number] 00:00:00 00:00:00 ROCKY damon 2019-12-28 2019-12-28 Outpatient TAMMY HURTADO [facility] [id number] 00:00:00 00:00:00 ROCKY damon 2019-12-26 2019-12-26 [facility] 1.2.840.114 [id number] Univers 00:00:00 00:00:00 Fred Wright 350.1.13.10 i ty of [facility] [id number] [phone] Ri dical nal 044 [facility] 2019-12-26 2019-12-26 Orders Doctor JOSUE 1.2.840.114 [id number] Univers 00:00:00 00:00:00 Only Unassigned, KELSEY [id number] ity of [place] [facility] 4.2.7.2.686 Reza as [phone] [address] 2019-12-15 2019-12-15 Orders Doctor JOSUE 1.2.840.114 [id number] Univers 00:00:00 00:00:00 Only Unassigned, KELSEY 350.1.13.10 ity of [place] [facility] 4.2.7.2.686 Reza as [id number] [address] 2019-11-20 2019-11-22 Inpatient JACE ROSS [facility] [id number] 02:50:13 11:02:00 [facility] n 2019-09-06 2019-09-06 Outpatient R AKINSIPE, [facility] [id number] Univers 09:30:00 09:30:00 ANISA [id number] jesse o f [facility] 2019-09-06 2019-09-06 Outpatient R AKINSIPE, [facility] [id number] Univers 00:00:00 00:00:00 ANISA molina o f [facility] 2019-08-09 2019-08-09 Telephone [facility] 1.2.840.114 [id number] Univers 00:00:00 00:00:00 Anisa Lester CLAIMS CONFIGURATION ANALYST 350.1.13.10 ity of [place] 4.2.7.2.686 Reza as MATERNAL [phone] Med ical & CHILD [address] [place] [address] 2019-08-04 2019-08-04 [facility]phone [facility] 1.2.840.114 [id number] Univers 00:00:00 00:00:00 Anisa C CLAIMS CONFIGURATION ANALYST 350.1.13.10 ity of [place] 4.2.7.2.686 Reza as MATERNAL [phone] Med ical & CHILD [address] [place] [address] 2019-08-04 2019-08-04 Telephone [facility] 1.2.840.114 [id number] Univers 00:00:00 00:00:00 Anisa C CLAIMS CONFIGURATION ANALYST 350.1.13.10 ity of [place] 4.2.7.2.686 Reza as MATERNAL [phone] Med ical & CHILD [address] [place] [address] 2019-06-27 2019-06-27 Telephone [facility] 1.2.840.114 [id number] Univers 00:00:00 00:00:00 Anisa C CLAIMS CONFIGURATION ANALYST 350.1.13.10 ity of [place] 4.2.7.2.686 Reza as MATERNAL [id number] Med ical & CHILD [address] [place] [address] 2019-06-22 2019-06-22 Office [facility] [id number] Univers 11:26:25 11:45:20 Visit Anisa C CLAIMS CONFIGURATION ANALYST 350.1.13.10 ity of [place] 4.2.7.2.686 Reza as MATERNAL [id number] Med ical & CHILD [address] [place] [address] 2019-06-22 2019-06-22 Outpatient R MICHELLE [facility] [id number] Univers 09:15:00 11:26:42 ANISA ity o f [facility] 2019-06-22 2019-06-22 Office [facility] 1.2.156.466 [id number] Univers 10:02:01 10:57:49 Visit Anisa C CLAIMS CONFIGURATION ANALYST 350.1.13.10 ity of [place] 4.2.7.2.686 Reza as MATERNAL [id number] Med ical & CHILD 107 [facility] 2019-06-22 2019-06-22 [facility] [id number] Univers 10:00:00 10:57:49 ANISA ogden f [facility] 2019-06-22 2019-06-22 Orders Doctor JOSUE 1.2.840.114 [id number] Univers 00:00:00 00:00:00 Only Unassigned, KELSEY 350.1.13.10 ity of [place] [facility] 4.2.7.2.686 Reza as [phone] [facility] 00[address] [place] 2019-02-20 2019-02-20 Telephone [facility] 1.2.840.114 [id number] Univers 00:00:00 00:00:00 Dre Wright 350.1.13.10 ity of [place] [phone] [place] [id number] [facility] 2019-01-31 2019-01-31 [facility] [id number] [facility] 13:46:03 23:59:00 Encounter Dre Wright 350.1.13.10 ity of [place] [id number] [facility] [address] [place] 2019-01-05 2019-01-05 Telephone [facility] 1.2.840.114 [id number] Univers 00:00:00 00:00:00 Dre Wright 350.1.13.10 ity of [place] [phone] [facility] nal 2 [facility] 2018-12-20 2018-12-20 Office [facility] 1.2.840.114 [id number] Univers 13:45:59 14:56:55 Visit Dre Wright 350.1.13.10 ity of [place] [phone] [place] [id number] [facility] Results Test Description Test Time Test Comments Results Result Comments Source N-TERMINAL PRO-BNP 2020-10-21 07:03:35 Test Item Value Reference Range Interpretation Comme nts NT-proBNP (test code = 121 pg/mL See_Comment [Aut omated message] The [id number]) system which ge nerated this result tra nsmitted reference range : <=125. The reference r jeovany was not used to int erpret this result as seth l/abnormal. CARYL (test code = CARYL) Biotin has been reported to cause a negative bias, interpret results relative to patient's use of biotin. Lab Interpretation (test Normal code = 17033-1) [id number] 05:33:53 Test Item Value Reference Range Interpretation Comments TROPONIN I (test <0.012 See_Comment [Automated code = [id number]) message] The system which generated this result transmitted reference range : <=0.034 ng/mL. The reference range was not used to interpr et this result as normal/abnormal . CARYL (test code = Equal or Less than CARYL) 0.034 ng/ml---Normal ?Note: Cardiac troponin begins to rise 3-4 hours after the onset of ischemia. Repeat in 4-6 hours if the sample was drawn within 3-4 hours of the onset of the symptom and found normal. Between 0.035 and 0.120 ng/mL--- Borderline. Questionable myocardial injury or necrosis ? ?Note: Serial measurement may be necessary to confirm or exclude the diagnosis of myocardial injury or necrosis; Clinical correlation (symptoms, EKGs, imaging studies, and others) required; Repeat in 4-6 hours if clinically indicated. ? Equal or Higher than 0.121 ng/mL---Abnormal. Myocardial Injury or Necrosis Likely ? Biotin has been reported to cause a negative bias, interpret results relative to patient's use of biotin. ? Lab Interpretation Normal (test code = 38624-3) [facility]. METABOLIC PANEL (70032)2020-10-21 05:23:46 Test Item Value Reference Range Interpretation Comments NA (test code = 138 mmol/L 135-145 7787519320) K (test code = 4.2 mmol/L 3.5-5.0 3858897906) CL (test code = 102 mmol/L 98-108 4682892190) CO2 TOTAL (test code 29 mmol/L 23-31 = 0195522864) AGAP (test code = 2-16 7103674150) BUN (test code = 19 mg/dL 7-23 2336620942) GLUCOSE (test code = 96 mg/dL 70-110 5824234163) CREATININE (test code 0.56 mg/dL 0.50-1.04 = 4759554029) TOTAL BILI (test code 0.4 mg/dL 0.1-1.1 = 8887753006) CALCIUM (test code = 9.9 mg/dL 8.6-10.6 9085813740) T PROTEIN (test code 7.3 g/dL 6.3-8.2 = 6893269093) ALBUMIN (test code = 4.3 g/dL 3.5-5.0 7398573711) ALK PHOS (test code = 102 U/L 34-122 3266740258) ALTv (test code = 12 U/L 5-35 1742-6) AST(SGOT) (test code 25 U/L 13-40 = 4976011787) eGFR (test code = mL/min/1.73m2 6780960909) CARYL (test code = CARYL) Association of Glomerular Filtration Rate (GFR) and Staging of Kidney Disease* + + +- +| GFR (mL/min/1.73 m2) ?| With Kidney Damage ?| ?Without Kidney Damage+ ------+ ----+ ------+| ?>90 ?| ?Stage one ?| ? Normal ?+ -+ + -+| ?60-89 ?| ?Stage two ?| ? Decreased GFR ? + + +- +| ?30-59 ?| ?Stage three ?| ? Stage three ? + + +- +| ?15-29 ?| ?Stage four ? | ? Stage four ?+ -+ + -+| ?<15 (or dialysis) ? ?| ?Stage five ? | ? Stage five ?+ -+ + -+ *Each stage assumes the associated GFR level has been in effect for at least three months. ?Stages 1 to 5, with or without kidney disease, indicate chronic kidney disease. Notes: Determination of stages one and two (with eGFR >59mL/min/1.73 m2) requires estimation of kidney damage for at least three months as defined by structural or functional abnormalities of the kidney, manifested by either:Pathological abnormalities or Markers of kidney damage (including abnormalities in the composition of the blood or urine or abnormalities in imaging tests). [facility] TempleLIP[facility], [id number] 05:23:25 Test Item Value Reference Range Interpretation Comments LIPASE (test code = 0138400140) 114 U/L 0-220 Lab Interpretation (test code = Normal 46394-1) [facility] TempleCBC WITH [id number] 05:00:37 Test Item Value Reference Range Interpretation Comments WBC (test code = See_Comment [Automated message] 2290-2) The system SEA generated this result transmitted ref erence range: 4.30 - 1 1.10 10*3/?L. The re ference range was not u sed to interpret this result as normal/abnor mal. RBC (test code = See_Comment [Automated message] 859-8) The system SEA generated this result transmitted ref erence range: 3.93 - 5 .25 10*6/?L. The re ference range was not u sed to interpret this result as normal/abnor mal. HGB (test code = 12.8 g/dL 11.6-15.0 718-7) HCT (test code = 39.2 % 35.7-45.2 4544-3) MCV (test code = 88.5 fL 80.6-95.5 787-2) MCH (test code = 28.9 pg 25.9-32.8 785-6) MCHC (test code = 32.7 g/dL 31.6-35.1 786-4) RDW-SD (test code 42.2 fL 39.0-49.9 = 34467-3) RDW-CV (test code 13.0 % 12.0-15.5 = 788-0) PLT (test code = See_Comment [Automated message] 609-3) The system whic h generated this result transmitted ref erence range: 166 - 35 8 10*3/?L. The re ference range was not u sed to interpret this result as normal/abnor mal. MPV (test code = 9.6 fL 9.5-12.9 27714-9) NRBC/100 WBC (test See_Comment [Automat ed message] code = 0362071467) The syste m which generated this result transmitted ref erence range: 0.0 - 10 .0 /100 WBCs. The refer ence range was not u sed to interpret this result as normal/abnor mal. NRBC x10^3 (test <0.01 See_Comment [Automated message] code = 8506869713) The syste m which generated this result transmitted ref erence range: 10*3/?L. The reference range was not used to interpr et this result as normal/abnormal . GRAN MAT (NEUT) % 64.3 % (test code = 770-8) IMM GRAN % (test 0.10 % code = 2369322204) LYMPH % (test code 24.7 % = 736-9) MONO % (test code 9.6 % = 5905-5) EOS % (test code = 0.7 % 713-8) BASO % (test code 0.6 % = 706-2) GRAN MAT 4.35 10*3/uL 1.88-7.09 x10^3(ANC) (test code = 5805034531) IMM GRAN x10^3 <0.03 0.00-0.06 (test code = 5393130243) LYMPH x10^3 (test 1.67 10*3/uL 1.32-3.29 code = 731-0) MONO x10^3 (test 0.65 10*3/uL 0.33-0.92 code = 742-7) EOS x10^3 (test 0.05 10*3/uL 0.03-0.39 code = 711-2) BASO x10^3 (test 0.04 10*3/uL 0.01-0.07 code = 704-7) [facility] TempleXR CHEST 1 [id number] 19:58:50HISTORY: Chest pain. COVID 19 infection. TECHNIQUE: Portable AP view of the chest is obtained. Comparison is madewith 06/28/2020 study. FINDINGS: Minimal congestion in both lungs and discoid atelectaticchangesin the left lung base noted. No acute pneumonia. No pneumothorax or pleuraleffusion ?detected. Cardiac size is within normal limits. CONCLUSIONS: No signs of acute cardiopulmonary disease.[facility], Radiant Results Inft User - 07/09/2020 1:59 PM CSTHISTORY: Chest pain. COVID 19 infection.TECHNIQUE: Portable AP view of the chest is obtained. Comparison is madewith 06/28/2020 study.FINDINGS: Minimalcongestion in both lungs and discoid atelectatic changesin the left lung base noted. No acute pneumonia. No pneumothorax or pleuraleffusion detected. Cardiac size is within normal limits. CONCLUSIONS:No signs of acute cardiopulmonary disease.[facility] WITH [id number] 18:53:00 Test Item Value Reference Range Interpretation Comments WBC (test code = See_Comment [Automated 8490-2) message] The sy stem which generated this result transmitted reference range : 4.30 - 11.10 10*3/?L. The reference range was not used to interpret this result as normal/abnormal . RBC (test code = See_Comment [Automated 869-8) message] The sy stem which generated this result transmitted reference range : 3.93 - 5.25 10*6/?L. The reference range was not used to interpret this result as normal/abnormal . HGB (test code = 13.0 g/dL 11.6-15 718-7) HCT (test code = 39.6 % 35.7-45.2 4544-3) MCV (test code = 87.8 fL 80.6-95.5 787-2) MCH (test code = 28.8 pg 25.9-32.8 785-6) MCHC (test code = 32.8 g/dL 31.6-35.1 786-4) RDW-SD (test code = 39.8 fL 39-49.9 01978-0) RDW-CV (test code = 12.4 % 12-15.5 788-0) PLT (test code = See_Comment H [Automated 727-3) message] The sy stem which generated this result transmitted reference range : 166 - 358 10*3/ ?L. The reference r jeovany was not used to interpret this result as normal/abnormal . MPV (test code = 9.0 fL 9.5-12.9 L 91189-7) NRBC/100 WBC (test See_Comment [Automat ed code = 3819417478) message] The system which generated this result transmitted reference range : 0.0 - 10.0 /100 WBCs. The refer ence range was not u sed to interpret th is result as normal/abnormal . NRBC x10^3 (test code <0.01 See_Comment [Auto mated = 2353136976) message] The s ystem which generated this result transmitted reference range : 10*3/?L. The reference range was not used to interpret this result as normal/abnormal . GRAN MAT (NEUT) % 55.9 % (test code = 770-8) IMM GRAN % (test code 0.20 % = 5772059308) LYMPH % (test code = 36.5 % 736-9) MONO % (test code = 5.8 % 5905-5) EOS % (test code = 1.2 % 713-8) BASO % (test code = 0.4 % 706-2) GRAN MAT x10^3(ANC) 2.91 10*3/uL 1.88-7.09 (test code = 8152166991) IMM GRAN x10^3 (test <0.03 0-0.06 code = 8390662059) LYMPH x10^3 (test code 1.90 10*3/uL 1.32-3.29 = 731-0) MONO x10^3 (test code 0.30 10*3/uL 0.33-0.92 L = 742-7) EOS x10^3 (test code = 0.06 10*3/uL 0.03-0.39 711-2) BASO x10^3 (test code <0.03 0.01-0.07 = 704-7) Lab Interpretation Abnormal (test code = 20097-5) [facility] TempleFELICIA [id number] 18:24:00 Test Item Value Reference Range Interpretation Comments TROPONIN I (test <0.012 See_Comment [Automated code = 1750282462) message] The system which generated this result transmitted reference range : <=0.034 ng/mL. The reference range was not used to interpr et this result as normal/abnormal . CARYL (test code = Equal or Less than CARYL) 0.034 ng/ml---Normal ?Note: Cardiac troponin begins to rise 3-4 hours after the onset of ischemia. Repeat in 4-6 hours if the sample was drawn within 3-4 hours of the onset of the symptom and found normal. Between 0.035 and 0.120 ng/mL--- Borderline. Questionable myocardial injury or necrosis ? ?Note: Serial measurement may be necessary to confirm or exclude the diagnosis of myocardial injury or necrosis; Clinical correlation (symptoms, EKGs, imaging studies, and others) required; Repeat in 4-6 hours if clinically indicated. ? Equal or Higher than 0.121 ng/mL---Abnormal. Myocardial Injury or Necrosis Likely ? Biotin has been reported to cause a negative bias, interpret results relative to patient's use of biotin. ? Lab Interpretation Normal (test code = 76627-5) [facility] TempleD-[id number] 18:24:00 Test Item Value Reference Interpretation Comments Range D-DIMER (test code = See_Comment [Autom ated 4010570558) message] The system which generated this result transmitted reference range : <0.41 ?g/mL (FEU). The reference range was not used to interpret this result as normal/abnormal . CARYL (test code = This test may be CARYL) used in conjunction with a clinical pretest probability (PTP) assessment model to exclude venous thromboembolism (VTE) in patients suspected of deep venous thrombosis (DVT) and pulmonary embolism (PE) A D-Dimer value less than 0.50 ?g/ml (FEU) has a negative predicative value of 96 to 100% (95% CI)and 97 to 100% (95% CI) as an aid in the diagnosis of deep vein thrombosis (DVT) and pulmonary embolism when there is low or moderate pretest probability of PE or DVT. D-Dimer values are expressed in initial fibrinogen equivalent units (FEU)" The assay results should be used with other information, including the clinical context, in forming a diagnosis. Lab Interpretation Normal (test code = 61701-8) [facility] TempleN-TERMINAL [id number] 18:21:00 Test Item Value Reference Range Interpretation Comments NT-proBNP (test code 101 pg/mL See_Comment [Autom ated = 7789967334) message] The system which generated this result transmitted reference range : <=125. The reference range was not used to interpret this result as normal/abnormal . CARYL (test code = CARYL) Biotin has been reported to cause a negative bias, interpret results relative to patient's use of biotin. Lab Interpretation Normal (test code = 73189-0) [facility] TempleCOMP. METABOLIC PANEL (23336)2020-07-09 18:12:00 Test Item Value Reference Range Interpretation Comments NA (test code = 141 mmol/L 135-145 9096877531) K (test code = 5.1 mmol/L 3.5-5 H 2959594675) CL (test code = 103 mmol/L 98-108 6013106697) CO2 TOTAL (test code = 32 mmol/L 23-31 H 3898348607) AGAP (test code = 2-16 2142837726) BUN (test code = 19 mg/dL 7-23 6322114822) GLUCOSE (test code = 99 mg/dL 70-110 9693247113) CREATININE (test code = 0.48 mg/dL 0.5-1.04 L 2276263806) TOTAL BILI (test code = 0.9 mg/dL 0.1-1.4 3890905277) CALCIUM (test code = 9.4 mg/dL 8.6-10.6 1186326761) T PROTEIN (test code = 8.0 g/dL 6.3-8.2 0499767147) ALBUMIN (test code = 4.1 g/dL 3.5-5 3565153665) ALK PHOS (test code = 105 U/L 34-122 3700136421) ALTv (test code = 19 U/L 5-35 1742-6) AST(SGOT) (test code = 39 U/L 13-40 1548300186) eGFR Calculation mL/min/1.73m2 (Non-) (test code = 4672000124) eGFR Calculation mL/min/1.73m2 () (test code = 1653793488) CARYL (test code = CARYL) Association of Glomerular Filtration Rate (GFR) and Staging of Kidney Disease* + --+ --+ ------+| GFR (mL/min/1.73 m2) ?| With Kidney Damage ?| ?Without Kidney Damage+ --------+ --------+ +| ?>90 ?| ?Stage one ?| ? Normal ?+ ---+ ---+ -------+| ?60-89 ?| ?Stage two ?| ? Decreased GFR ? + --+ --+ ------+| ?30-59 ?| ?Stage three ?| ? Stage three ? + --+ --+ ------+| ?15-29 ?| ?Stage four ? | ? Stage four ?+ ---+ ---+ -------+| ?<15 (or dialysis) ? ?| ?Stage five ? | ? Stage five ?+ ---+ ---+ -------+ *Each stage assumes the associated GFR level has been in effect for at least three months. ?Stages 1 to 5, with or without kidney disease, indicate chronic kidney disease. Notes: Determination of stages one and two (with eGFR >59mL/min/1.73 m2) requires estimation of kidney damage for at least three months as defined by structural or functional abnormalities of the kidney, manifested by either:Pathological abnormalities or Markers of kidney damage (including abnormalities in the composition of the blood or urine or abnormalities in imaging tests). Lab Interpretation Abnormal (test code = 34590-7) [facility] [id number] 02:31:00 Test Item Value Reference Range Interpretation Comments APPEARANCE (test code = Hazy Clear A 0626965000) COLOR (test code = Yellow Yellow 8530578334) PH (test code = 4.8-8.0 1283411003) SP GRAVITY (test code = 1.003-1.030 7529409845) GLU U QUAL (test code = Normal Normal 9087693740) BLOOD (test code = Negative Negative INTERFERE NCE FROM 8866661254) ASCORBIC ACID M AY CAUSE FALSE NEG ATIVE RESULT KETONES (test code = Negative Negative 9649120905) PROTEIN (test code = Negative Negative 2887-8) UROBILIN (test code = Normal Normal 2429935095) BILIRUBIN (test code = Negative Negative 4212713400) NITRITE (test code = Negative Negative 4474838054) LEUK ISAIAH (test code = Negative Negative 6865668364) RBC/HPF (test code = See_Comment H [Autom ated message] 1136840066) The system SEA generated this result transmitted ref erence range: 0 - 3 HP F. The reference range was not used to int erpret this result as normal/abnormal . WBC/HPF (test code = See_Comment [Autom ated message] 4201739638) The system SEA generated this result transmitted ref erence range: 0 - 5 HP F. The reference range was not used to int erpret this result as normal/abnormal . BACTERIA (test code = Few Negative A 0090726987) MUCOUS (test code = Moderate Negative LPF A 2155769274) SQ EPITH (test code = HPF 0892591766) Lab Interpretation (test Abnormal code = 41524-5) [facility] (NA, K, CL, CO2, GLUCOSE, BUN, CREATININE, CA)2020-06-29 02:20:00 Test Item Value Reference Range Interpretation Comments NA (test code = 137 mmol/L 135-145 0447672460) K (test code = 3.8 mmol/L 3.5-5 8357417262) CL (test code = 100 mmol/L 98-108 2778698454) CO2 TOTAL (test code = 27 mmol/L 23-31 2211144639) AGAP (test code = 2-16 2226437825) BUN (test code = 20 mg/dL 7-23 1092753094) GLUCOSE (test code = 85 mg/dL 70-110 0995720463) CREATININE (test code 0.54 mg/dL 0.5-1.04 = 7838135678) CALCIUM (test code = 9.6 mg/dL 8.6-10.6 1727777487) eGFR Calculation mL/min/1.73m2 (Non-) (test code = 2787865375) eGFR Calculation mL/min/1.73m2 () (test code = 0112291626) CARYL (test code = CARYL) Association of Glomerular Filtration Rate (GFR) and Staging of Kidney Disease* + -+ + ---+| GFR (mL/min/1.73 m2) ?| With Kidney Damage ?| ?Without Kidney Damage+ -------+ ------+ ---------+| ?>90 ?| ?Stage one ?| ? Normal ?+ --+ -+ ----+| ?60-89 ?| ?Stage two ?| ? Decreased GFR ? + -+ + ---+| ?30-59 ?| ?Stage three ?| ? Stage three ? + -+ + ---+| ?15-29 ?| ?Stage four ? | ? Stage four ?+ --+ -+ ----+| ?<15 (or dialysis) ? ?| ?Stage five ? | ? Stage five ?+ --+ -+ ----+ *Each stage assumes the associated GFR level has been in effect for at least three months. ?Stages 1 to 5, with or without kidney disease, indicate chronic kidney disease. Notes: Determination of stages one and two (with eGFR >59mL/min/1.73 m2) requires estimation of kidney damage for at least three months as defined by structural or functional abnormalities of the kidney, manifested by either:Pathological abnormalities or Markers of kidney damage (including abnormalities in the composition of the blood or urine or abnormalities in imaging tests). [facility] TempleFelicia [id number] 02:08:00 Test Item Value Reference Range Interpretation Comments TROPONIN I (test <0.012 See_Comment [Automated code = 1249202909) message] The system which generated this result transmitted reference range : <=0.034 ng/mL. The reference range was not used to interpr et this result as normal/abnormal . CARYL (test code = Equal or Less than CARYL) 0.034 ng/ml---Normal ?Note: Cardiac troponin begins to rise 3-4 hours after the onset of ischemia. Repeat in 4-6 hours if the sample was drawn within 3-4 hours of the onset of the symptom and found normal. Between 0.035 and 0.120 ng/mL--- Borderline. Questionable myocardial injury or necrosis ? ?Note: Serial measurement may be necessary to confirm or exclude the diagnosis of myocardial injury or necrosis; Clinical correlation (symptoms, EKGs, imaging studies, and others) required; Repeat in 4-6 hours if clinically indicated. ? Equal or Higher than 0.121 ng/mL---Abnormal. Myocardial Injury or Necrosis Likely ? Biotin has been reported to cause a negative bias, interpret results relative to patient's use of biotin. ? Lab Interpretation Normal (test code = 33888-8) [facility] TempleHepatic Function Panel (ALB, T.PRO, BILI T, BU/BC, ALT, AST, ALK PHOS)2020-06-29 01:57:00 Test Item Value Reference Range Interpretation Comments TOTAL BILI (test code = 2841885866) 0.4 mg/dL 0.1-1.1 BILI UNCON (test code = 8708784357) 0.4 mg/dL 0.1-1.1 BILI CONJ (test code = 3847633370) 0.0 mg/dL 0-0.3 T PROTEIN (test code = 8159066846) 7.8 g/dL 6.3-8.2 ALBUMIN (test code = 7536307961) 4.5 g/dL 3.5-5 ALK PHOS (test code = 8390755898) 103 U/L 34-122 ALTv (test code = 1742-6) 16 U/L 5-35 AST(SGOT) (test code = 2246288238) 28 U/L 13-40 Lab Interpretation (test code = Normal 44410-6) [facility] TempleLipase [id number] 01:57:00 Test Item Value Reference Range Interpretation Comments LIPASE (test code = 3832619149) 73 U/L 0-220 Lab Interpretation (test code = Normal 93417-2) [facility] TempleCOVID-[facility] (ID NOW RAPID TESTING)2020-06-29 01:49:00 Test Item Value Reference Range Interpretation Comments SARS-CoV-2 Rapid ID NOW Positive Not Detected A (test code = 59082-9) CARYL (test code = CARYL) ID NOW COVID-19 Assay is an isothermal nucleic acid amplification test intended for the qualitative detection of nucleic acid from SARS-CoV-2 viral RNA in nasopharyngeal (KICKING MACHINE OPERATOR) specimens. It is used under Emergency Use Authorization (EUA) by FDA. The limit of detection (LOD) of the assay is 125 Genome Equivalents/mL. A positive result is indicative of the presence of SARS-CoV-2 RNA. ?Clinical correlation with patient history and other diagnostic information is necessary to determine patient infection status. A negative (Not Detected) result does not preclude SARS-CoV-2 infection. In patients with clinical symptoms and other tests that are consistent with SARS-CoV-2 infection, negative results should be treated as presumptive negative and a new specimen should be tested with alternative PCR molecular test. Invalid: Please collect a new specimen for repeat patient testing if clinically indicated. Lab Interpretation Abnormal (test code = 57537-3) [facility] with [id number] 01:38:00 Test Item Value Reference Range Interpretation Comments WBC (test code = See_Comment [Automated message] 5554-2) The system SEA generated this result transmitted ref erence range: 4.30 - 1 1.10 10*3/?L. The re ference range was not u sed to interpret this result as normal/abnor mal. RBC (test code = See_Comment [Automated message] 763-8) The system SEA generated this result transmitted ref erence range: 3.93 - 5 .25 10*6/?L. The re ference range was not u sed to interpret this result as normal/abnor mal. HGB (test code = 13.4 g/dL 11.6-15 718-7) HCT (test code = 41.3 % 35.7-45.2 4544-3) MCV (test code = 88.6 fL 80.6-95.5 787-2) MCH (test code = 28.8 pg 25.9-32.8 785-6) MCHC (test code = 32.4 g/dL 31.6-35.1 786-4) RDW-SD (test code 41.9 fL 39-49.9 = 72605-3) RDW-CV (test code 12.9 % 12-15.5 = 788-0) PLT (test code = See_Comment [Automated message] 427-3) The system whic h generated this result transmitted ref erence range: 166 - 35 8 10*3/?L. The re ference range was not u sed to interpret this result as normal/abnor mal. MPV (test code = 9.7 fL 9.5-12.9 81910-5) NRBC/100 WBC (test See_Comment [Automat ed message] code = 0098084702) The syste m which generated this result transmitted ref erence range: 0.0 - 10 .0 /100 WBCs. The refer ence range was not u sed to interpret this result as normal/abnor mal. NRBC x10^3 (test <0.01 See_Comment [Automated message] code = 2707635599) The syste m which generated this result transmitted ref erence range: 10*3/?L. The reference range was not used to interpr et this result as normal/abnormal . GRAN MAT (NEUT) % 56.1 % (test code = 770-8) IMM GRAN % (test 0.20 % code = 4763040001) LYMPH % (test code 30.1 % = 736-9) MONO % (test code 12.6 % = 5905-5) EOS % (test code = 0.5 % 713-8) BASO % (test code 0.5 % = 706-2) GRAN MAT 3.15 10*3/uL 1.88-7.09 x10^3(ANC) (test code = 6559674212) IMM GRAN x10^3 <0.03 0-0.06 (test code = 5752606216) LYMPH x10^3 (test 1.69 10*3/uL 1.32-3.29 code = 731-0) MONO x10^3 (test 0.71 10*3/uL 0.33-0.92 code = 742-7) EOS x10^3 (test 0.03 10*3/uL 0.03-0.39 code = 711-2) BASO x10^3 (test 0.03 10*3/uL 0.01-0.07 code = 704-7) [facility] URINALYSIS W SPECIFIC [id number] 16:56:00 Test Item Value Reference Range Interpretation Comments POCT U SP GRAV (test code = 3255) . 1.005-1.025 POCT PH U (test code = 3254) 5 mg/dl 5-8 POCT U LEUK EST (test code = Trace Negative - Negative 3263) POCT U NIT (test code = 3262) Neg Negative - Negative POCT U PROT (test code = 3259) Trace Negative - Negative POCT U GLU (test code = 3256) Neg Negative - Negative POCT U KETONE (test code = 3258) None Negative - Negative POCT U UROBILI (test code = 3260) . 0.2-1 POCT U BILI (test code = 3261) . Negative - Negative POCT U BLD (test code = 3257) Negative - Negative POCT U COLOR (test code = 3266) POCT U APPEAR (test code = 3267) [facility] TemplePO[facility] URINAL[facility] W SPECIFIC [id number] 16:56:00 Test Item Value Reference Range Interpretation Comments POCT U SP GRAV (test code = 3255) . 1.005-1.025 POCT PH U (test code = 3254) 5 mg/dl 5-8 POCT U LEUK EST (test code = Trace Negative - Negative 3263) POCT U NIT (test code = 3262) Neg Negative - Negative POCT U PROT (test code = 3259) Trace Negative - Negative POCT U GLU (test code = 3256) Neg Negative - Negative POCT U KETONE (test code = 3258) None Negative - Negative POCT U UROBILI (test code = 3260) . 0.2-1 POCT U BILI (test code = 3261) . Negative - Negative POCT U BLD (test code = 3257) Negative - Negative POCT U COLOR (test code = 3266) POCT U APPEAR (test code = 3267) [facility] TempleMR CERVICAL SPINE WO [id number] 03:40:18 Mild degenerative changes of the cervical spine are seen, most notably atC5-C6, where there is mildspinal canal stenosis without neural foraminalnarrowing. No acute osseous findings are seen. No abnormal spinal cord signal changesare identified. IKeyon MD., have reviewed this study and agree with the abovereport.* * * * * * * * ORIGINAL REPORT * * * * * * * *EXAM: MR CERVICAL SPINE WO CONTRAST CLINICAL HISTORY: Radiculopathy TECHNIQUE:Multiplanar multisequence MRI of cervical spine obtained withoutintravenous contrast COMPARISON: CT of cervical spine without contrast dated 10/29/2018FINDINGS: There is normal sagittal alignment and cervical lordosis. The vertebralbody heights are preserved and no acute fractures are seen. Thecraniocervical intact. The cervical spinal cord demonstrates no signalabnormality. C2-C3: No spinal canal or neural foraminal stenosis is seen. C3-C4: No spinal canal or neural foraminal stenosis is seen. C4-C5: Shallow posterior disc osteophyte complex is seen without spinalcanal or neural foraminal stenosis. C5-C6: A posterior disc osteophyte complex is seen with uncinate spurs andfacet arthropathy. Mild ligamentum flavum thickening is seen. There is mildspinal canal stenosis with no significant neural foraminal narrowing. C6-C7 and C7-T1: No spinal canal or neural foraminal stenosis is seen.Small perineural cysts are identified in the neural foramina of the lowercervical and upper thoracic spine. These are usually incidental. [facility], Radiant Results Inft User - 01/31/2019 10:42 PM CDT* * * * * * * * ORIGINAL REPORT * * * * * * * *EXAM: MR CERVICAL SPINE WO CONTRASTCLINICAL HISTORY: Radiculopathy TECHNIQUE:Multiplanar multisequence MRI of cervical spine obtained withoutintravenous contrastCOMPARISON: CT of cervical spine without contrast dated 10/29/2018FINDINGS:There is normal sagittal alignment and cervical lordosis. The vertebralbody heights are preserved and no acute fractures are seen. Thecraniocervical intact. The cervical spinal cord demonstrates no signalabnormality.C2-C3: No spinal canal or neural foraminal stenosis is seen.C3-C4: No spinalcanal or neural foraminal stenosis is seen.C4-C5: Shallow posterior disc osteophyte complex is seen without spinalcanal or neural foraminal stenosis.C5-C6: A posterior disc osteophyte complex is seen with uncinate spurs andfacet arthropathy. Mild ligamentum flavum thickening is seen. There is mildspinal canal stenosis with no significant neural foraminal narrowing.C6-C7 and C7-T1: No spinal canal or neural foraminal stenosis is seen.Small perineural cysts are identified in the neural foramina of the lowercervical and upper thoracic spine. These are usually incidental.IMPRESSIONMild degenerative changes of the cervical spine are seen, most notably atC5-C6, where there is mild spinal canal stenosis without neural foraminalnarrowing.No acute osseous findings are seen. No abnormal spinal cord signal changesare identified.IKeyon MD., have reviewed this study and agree with the abovereport.[facility]
[2021-08-30] MEDS ORDERED: MORPHINE 4 MG/ML SYR ONE (11:37)
[2021-08-30] MEDS ORDERED: ONDANSETRON 4 MG/2 ML VIAL ONE (11:38)
[2021-08-30] MEDS ORDERED: NA CHLORIDE 0.9% 500 ML ONE (11:38)
[2021-08-30 12:13] LABS: Hematocrit 38.1 % (36.0-45.0); Lymphocytes % 39.5 % (15.3-44.8); MPV 7.7 fL (7.6-11.3); RBC Red Blood Cell Count 4.42 M/uL (3.86-4.86)
[2021-08-30 12:30] LABS: ALT/SGPT 16 U/L (12-78); AST/SGOT 11 U/L (15-37); Albumin 3.5 g/dL (3.4-5.0); Alkaline Phosphatase 99 U/L (45-117); BUN Blood Urea Nitrogen 15 mg/dL (7-18); Bicarbonate 27 mmol/L (21-32); Bilirubin Total 0.3 mg/dL (0.2-1.0); Glucose Level 92 mg/dL (74-106); Protein, Total 7.3 g/dL (6.4-8.2); Sodium Level 142 mmol/L (136-145)
--- NOTE | 2021-08-30 13:10 | RAD REPORT ---
EXAM DESCRIPTION: CTChest Abdomen Pelvis W Cont - 08/30/2021 1:00 pm CLINICAL HISTORY: PAIN COMPARISON: Transvaginal Study Probe dated 02/03/2019; Transvaginal Study Probe dated 10/20/2018 TECHNIQUE: CT of the chest, abdomen, and pelvis was performed. All CT scans are performed using dose optimization technique as appropriate and may include automated exposure control or mA/KV adjustment according to patient size. FINDINGS: Thorax: Chest Wall: No abnormal mass Lungs: No acute abnormality. Pleura: No effusions or pneumothorax. Nicole/Mediastinum: No lymphadenopathy. Aorta/Pulmonary Arteries: Unremarkable Heart: Normal size. Abdomen/Pelvis: Liver: Hepatic steatosis. Biliary: Cholecystectomy Stomach: No significant focal abnormality. Duodenum: No significant focal abnormality. Pancreas: No significant abnormality. Spleen: No significant abnormality. Adrenal: No suspicious lesions. Kidney/ureter: No hydronephrosis. No renal calculi. Retroperitoneum: No retroperitoneal adenopathy. Vascular: No aneurysm. Bowel: No significant focal abnormality. Peritoneum: No ascites or free air. Bladder: Grossly unremarkable. Reproductive: Cystic mass in the right adnexa measures 7.7 cm and has a thin septation. On the prior ultrasound, the mass is measured at 6 cm. Hysterectomy. Bones: No acute fracture. Other: n/a IMPRESSION: No acute findings within the chest, abdomen, or pelvis. Specifically, no evidence of sig nificant trauma. Cystic right adnexal mass has been evaluated previously with ultrasound going back to 10/20/2018 appe ar the lesion measures 7.[address] On ultrasound, the lesion measured 6 cm. The lesion coul d have increased in size or differences in technique when measuring with CT versus ultrasound. The pa tient should probably follow-up with gynecology as an outpatient.
--- NOTE | 2021-08-30 13:49 | ER ---
Nurse's Notes [facility] Name: Sara Garcia Age: 61 yrs Sex: Female : 1960 Arrival Date: 08/30/2021 Time: 10:34 Bed 15 Private MD: Diagnosis: Contusion of left front wall of thorax Presentation: 08/30 10:38 Chief complaint: Patient states: "I tripped and fell at [facility] about an hour ago and ab2 fell onto my left side." Pt c/o Left rib pain, left arm and shoulder pain and left hip pain. Pt denies hitting head or LOC. Coronavirus screen: Vaccine status: Patient reports being unvaccinated. Client denies travel out of the [place] in the last 14 days. At this time, the client does not indicate any symptoms associated with coronavirus-19. Ebola Screen: Patient negative for fever greater than or equal to 101.5 degrees Fahrenheit, and additional compatible Ebola Virus Disease symptoms Patient denies exposure to infectious person. Patient denies travel to an Ebola-affected area in the 21 days before illness onset. No symptoms or risks identified at this time. Initial Sepsis Screen: Does the patient meet any 2 criteria? No. Patient's initial sepsis screen is negative. Does the patient have a suspected source of infection? No. Patient's initial sepsis screen is negative. Risk Assessment: Do you want to hurt yourself or someone else? Patient reports no desire to harm self or others. Onset of symptoms is unknown. 10:38 Method Of Arrival: Ambulatory ab2 10:38 Acuity: ISAIAH 3 ab2 Triage Assessment: 10:40 General: Appears in no apparent distress. comfortable, Behavior is calm, cooperative, ab2 appropriate for age. Pain: Complains of pain in left hip and left arm. Pain: Complains of pain in chest, left hip and left arm. Neuro: Level of Consciousness is awake, alert, obeys commands, Oriented to person, place, time, situation, Appropriate for age. Respiratory: Airway is patent Respiratory effort is even, unlabored. Historical: - Allergies: 10:41 No Known Allergies; ab2 - PMHx: 10:41 Hypertensive disorder; ab2 - PSHx: 10:41 Cholecystectomy; ab2 - Immunization history:: Adult Immunizations up to date. - Social history:: Smoking status: Patient denies any tobacco usage or history of. Screenin:45 Abuse screen: Denies threats or abuse. Denies injuries from another. Nutritional bp screening: No deficits noted. Tuberculosis screening: No symptoms or risk factors identified. Fall Risk Fall in past 12 months (25 points). No secondary diagnosis (0 pts). No IV (0 pts). Ambulatory Aid- None/Bed Rest/Nurse Assist (0 pts). Gait- Normal/Bed Rest/Wheelchair (0 pts) Mental Status- Oriented to own ability (0 pts). Total Busch Fall Scale indicates Low Risk Score (25-44 pts). Fall prevention measures have been instituted. Side Rails Up X 2 Placed close to Nursing Station Frequent Obs/Assesments occuring As available Patient and Family Educated on Fall Prevention Program and strategies. Assessment: 10:45 General: SEE TRIAGE NOTE. bp 12:03 Reassessment: No changes from previously documented assessment. Patient and/or family bp updated on plan of care and expected duration. Pain level reassessed. CT PENDING. 13:00 Reassessment: No changes from previously documented assessment. Patient and/or family bp updated on plan of care and expected duration. Pain level reassessed. Neuro: Gait is steady. 14:19 Reassessment: PT D/C HOME AMBULATORY, DECLINING TO SIGN D/C PAPERWORK, DX WITH RIB bp CONTUSION. Vital Signs: 10:38 BP 146 / 81; Pulse 58; Resp 17; Temp 97.9(TE); Pulse Ox 99% on R/A; Weight 65.77 kg; ab2 Height 5 ft. 2 in. (157.48 cm); Pain 8/10; 12:03 BP 139 / 83; Pulse 64; Resp 14; Pulse Ox 98% ; bp 14:20 BP 145 / 80; Pulse 64; Resp 16; Temp 98; Pulse Ox 98% ; bp 10:38 Body Mass Index 26.52 (65.77 kg, 157.48 cm) ab2 ED Course: 10:34 Patient arrived in ED. rg4 10:40 Triage completed. ab2 10:41 Arm band placed on left wrist. ab2 10:42 Justin Brand NP is PHCP. pm1 10:42 Klaus Hirsch MD is Attending Physician. pm1 10:44 Bill Johnson, RN is Primary Nurse. bp 10:45 Patient has correct armband on for positive identification. Bed in low position. Call bp light in reach. Side rails up X2. 12:00 Inserted saline lock: 20 gauge in right forearm, using aseptic technique. Blood bp collected. 13:02 Chest Abdomen Pelvis W Cont In Process Unspecified. EDMS 14:20 No provider procedures requiring assistance completed. IV discontinued, intact, bp bleeding controlled, No redness/swelling at site. Pressure dressing applied. Administered Medications: 12:00 Drug: NS 0.9% 500 ml Route: IV; Rate: bolus; Site: right forearm; bp 14:18 Follow up: IV Status: Completed infusion; IV Intake: 500ml bp 12:00 Drug: morphine 4 mg Route: IVP; Site: right forearm; bp 14:18 Follow up: Response: No adverse reaction; Pain is decreased bp 12:00 Drug: Zofran (Ondansetron) 4 mg Route: IVP; Site: right forearm; bp 14:18 Follow up: Response: No adverse reaction bp 14:00 Drug: Ketorolac 30 mg Route: IVP; Site: right forearm; bp 14:19 Follow up: Response: Pain is decreased bp Intake: 14:18 IV: 500ml; Total: 500ml. bp Outcome: 13:48 Discharge ordered by MD. pm1 14:20 Discharged to home ambulatory. bp 14:20 Condition: stable 14:20 Discharge instructions given to patient, Instructed on discharge instructions, follow up and referral plans. medication usage, Demonstrated understanding of instructions, follow-up care, medications. 14:21 Patient left the ED. bp Signatures: Dispatcher [employer] EDPR Justin Brand, [employer] pm1 Susie Dinero rg4 Bill Johnson, RN RN bp Kenji Rubin2
--- NOTE | 2021-08-30 13:49 | EDPHYS ---
Physician Documentation [facility] Name: Sara Garcia Age: 61 yrs Sex: Female : 1960 Arrival Date: 08/30/2021 Time: 10:34 Bed 15 Private MD: ED Physician Klaus Hirsch HPI: 08/30 11:23 This 61 yrs old Female presents to ER via Ambulatory with complaints of Fall pm1 Injury. 11:23 Details of fall: The patient fell from an upright position, while walking. Onset: The pm1 symptoms/episode began/occurred today. Associated injuries: The patient sustained left rib area below left breast. Severity of symptoms: in the emergency department the symptoms are unchanged. The patient has not experienced similar symptoms in the past. The patient has not recently seen a physician. Patient ripped on uneven concrete surface and landed on her left side, primarily her left breast. No head injury, headache, neck pain, LOC. Historical: - Allergies: 10:41 No Known Allergies; ab2 - PMHx: 10:41 Hypertensive disorder; ab2 - PSHx: 10:41 Cholecystectomy; ab2 - Immunization history:: Adult Immunizations up to date. - Social history:: Smoking status: Patient denies any tobacco usage or history of. ROS: 18:10 Constitutional: Negative for fever, chills, and weight loss, Neck: Negative for injury, pm1 pain, and swelling, Cardiovascular: Negative for chest pain, palpitations, and edema, Respiratory: Negative for shortness of breath, cough, wheezing, and pleuritic chest pain, Abdomen/GI: Negative for abdominal pain, nausea, vomiting, diarrhea, and constipation, Back: Negative for injury and pain, MS/Extremity: Negative for injury and deformity, Skin: Negative for injury, rash, and discoloration, Neuro: Negative for headache, weakness, numbness, tingling, and seizure. 18:10 All other systems are negative. Exam: 18:10 Constitutional: This is a well developed, well nourished patient who is awake, alert, pm1 and in no acute distress. Head/Face: Normocephalic, atraumatic. 18:10 Back: No spinal tenderness. No costovertebral tenderness. Full range of motion. Skin: Warm, dry with normal turgor. Normal color with no rashes, no lesions, and no evidence of cellulitis. MS/ Extremity: Pulses equal, no cyanosis. Neurovascular intact. Full, normal range of motion. 18:10 Chest/axilla: Palpation: tenderness, that is moderate, of the left lateral anterior chest focal point area, that totally reproduces the patient's complaints. 18:10 Cardiovascular: Exam negative for acute changes, Rate: normal, Rhythm: regular, Pulses: no pulse deficits are appreciated, Heart sounds: normal, normal S1and S2. 18:10 Respiratory: Exam negative for acute changes, respiratory distress, shortness of breath, Breath sounds: are clear throughout. 18:10 Abdomen/GI: Inspection: abdomen appears normal, Palpation: abdomen is soft and non-tender, in all quadrants. 18:10 Neuro: Exam negative for acute changes, Orientation: is normal, Mentation: is normal, Motor: is normal, moves all fours. Vital Signs: 10:38 BP 146 / 81; Pulse 58; Resp 17; Temp 97.9(TE); Pulse Ox 99% on R/A; Weight 65.77 kg; ab2 Height 5 ft. 2 in. (157.48 cm); Pain 8/10; 12:03 BP 139 / 83; Pulse 64; Resp 14; Pulse Ox 98% ; bp 14:20 BP 145 / 80; Pulse 64; Resp 16; Temp 98; Pulse Ox 98% ; bp 10:38 Body Mass Index 26.52 (65.77 kg, 157.48 cm) ab2 MDM: 10:44 Patient medically screened. pm1 13:47 Data reviewed: vital signs. Data interpreted: Pulse oximetry: on room air is 98 %. pm1 Interpretation: normal. Counseling: I had a detailed discussion with the patient and/or guardian regarding: the historical points, exam findings, and any diagnostic results supporting the discharge/admit diagnosis, lab results, radiology results, the need for outpatient follow up, to return to the emergency department if symptoms worsen or persist or if there are any questions or concerns that arise at home. Special discussion: I discussed with the patient the need to follow-up with the PCP/specialist for the noted incidental finding on X-ray/CT scanning. follow up with traffic or system dispatcher outpatient per radiology. 08/30 11:23 Order name: CBC with Diff; Complete Time: 12:37 pm1 08/30 11:23 Order name: CMP; Complete Time: 12:37 pm1 08/30 11:57 Order name: Chest Abdomen Pelvis W Cont; Complete Time: 13:11 EDIN 08/30 11:23 Order name: IV Saline Lock; Complete Time: 12:02 pm1 Administered Medications: 12:00 Drug: NS 0.9% 500 ml Route: IV; Rate: bolus; Site: right forearm; bp 14:18 Follow up: IV Status: Completed infusion; IV Intake: 500ml bp 12:00 Drug: morphine 4 mg Route: IVP; Site: right forearm; bp 14:18 Follow up: Response: No adverse reaction; Pain is decreased bp 12:00 Drug: Zofran (Ondansetron) 4 mg Route: IVP; Site: right forearm; bp 14:18 Follow up: Response: No adverse reaction bp 14:00 Drug: Ketorolac 30 mg Route: IVP; Site: right forearm; bp 14:19 Follow up: Response: Pain is decreased bp Disposition Summary: 08/30/21 13:48 Discharge Ordered Location: Home pm1 Problem: new pm1 Symptoms: have improved pm1 Condition: Stable pm1 Diagnosis - Contusion of left front wall of thorax pm1 Followup: pm1 - With: Emergency Department - When: As needed - Reason: Worsening of condition Followup: pm1 - With: Private Physician - When: 2 - 3 days - Reason: Recheck today's complaints, Continuance of care, Re-evaluation by your physician Discharge Instructions: - Discharge Summary Sheet pm1 - Rib Contusion pm1 Forms: - Medication Reconciliation Form pm1 - Thank You Letter pm1 - Antibiotic Education pm1 - Prescription Opioid Use pm1 - Work release form eb Prescriptions: - Tylenol-Codeine #3 300 mg-30 mg Oral - take 2 tablet by ORAL route every 6 hours As needed; 20 tablet; Refills: 0, pm1 Product Selection Permitted Addendum: 09/03/2021 07:04 Co-signature as Attending Physician, Klaus Hirsch MD I agree with the assessment and c neely plan of care. Signatures: Dispatcher [employer] [facility] Klaus Hirsch MD MD cha Marinas, Patrick, DISTRIBUTION MANAGER DISTRIBUTION MANAGER pm1 Bill Johnson, JOSLYN RN Kenji Marino ab2 Corrections: (The following items were deleted from the chart) 08/30 11:57 11:24 Thorax W/ Con+CT.RAD.BRZ ordered. EDMS EDMS 11:58 11:24 Abdomen Pelvis W Con+CT.RAD.BRZ ordered. EDMS EDMS
[2021-08-30] MEDS ORDERED: KETOROLAC 30 MG/ML INJ ONE (14:11)
[2021-08-30 14:54] VITALS: O2SAT 98
[2021-08-30 14:55] VITALS: BP 145/80; TEMP 98
== END 2021-08-30 14:21 | disposition home or self-care (01) ==
LOC: ER 10:30
DX: S20.212A Contusion of left front wall of thorax, initial encounter (principal); W01.0XXA Fall on same level from slipping, tripping and stumbling without subsequent striking against object, initial encounter; Y93.01 Activity, walking, marching and hiking; I10 Essential (primary) hypertension
CPT/HCPCS: 96361; 85025; 36415; 80053; 71260; 74177; 96375; 96374; 99284; Q9967; J7040; J2405